=== PATIENT | male | born 1935 | race Caucasian/White ===

== ENCOUNTER 2019-11-09 16:29 | Emergency (ER) | payer MEDICARE, BC ==
[~2019-11-09] VITALS: Ht 167.6 cm; Wt 95.3 kg
[2019-11-09 17:45] LABS: URINE BILIRUBIN NEGATIVE (Negative); URINE BLOOD NEGATIVE (Negative); URINE CLARITY CLEAR; URINE COLOR YELLOW; URINE GLUCOSE-RANDOM NEGATIVE (Negative); URINE KETONES NEGATIVE (Negative); URINE LEUKOCYTES-REFLEX NEGATIVE (Negative); URINE NITRITE-REFLEX NEGATIVE (Negative); URINE PROTEIN NEGATIVE (Negative); URINE SPECIFIC GRAVITY <= 1.005 (1.005-1.030); URINE UROBILINOGEN 0.2 E.U./dl (0.2-1.0)
[2019-11-09 18:17] VITALS: BP 145/75
== END 2019-11-09 18:26 | disposition home or self-care (01) ==
LOC: M.ERS 16:29
PROVIDERS: Physician Assistant
DX: R33.9 Retention of urine, unspecified (principal); E78.00 Pure hypercholesterolemia, unspecified; I10 Essential (primary) hypertension

== ENCOUNTER 2019-11-11 13:45 | Emergency (ER) | payer MEDICARE, BC ==
[~2019-11-11] VITALS: Ht 167.6 cm; Wt 96.6 kg
[2019-11-11 14:44] LABS: ABSOLUTE EOSINOPHILS 0.3 thou/uL (0.0-0.7); ABSOLUTE LYMPHOCYTES 2.2 thou/uL (0.8-5.3); ABSOLUTE MONOCYTES 0.7 thou/uL (0.0-1.2); ABSOLUTE NEUTROPHILS 5.6 thou/uL (1.6-8.1); BASOPHILS 0.6 %; EOSINOPHILS 3.7 %; HEMATOCRIT 40.5 % (42.0-52.0); LYMPHOCYTES 25.2 %; MCH 29.5 pg (26.0-34.0); MCHC 34.6 g/dL (28.0-37.0); MCV 85.4 fL (80.0-100.0); MONOCYTES 8.1 %; MPV 7.6 fl. (7.2-11.1); NUCLEATED RBCS 0 /100WBC; PLATELET COUNT* 220 thou/uL (150-400); POLYS 62.4 %; RBC 4.74 mil/uL (4.50-6.00); RDW-CV 14.7 % (10.5-14.5); WBC 8.9 thou/uL (4.0-11.0)
[2019-11-11 15:00] LABS: APTT 26.6 Seconds (25.0-31.3); PROTIME 10.1 Seconds (9.20-11.50)
[2019-11-11 15:15] LABS: CALCIUM 8.4 mg/dL (8.5-10.1); CREATININE 1.8 mg/dL (0.6-1.3); POTASSIUM 4.4 mmol/L (3.5-5.1)
[2019-11-11 15:20] LABS: ALBUMIN 3.6 g/dL (3.4-5.0); TOTAL BILIRUBIN 0.5 mg/dL (<0.1-1.0); TOTAL PROTEIN 7.2 g/dL (6.4-8.2)
[2019-11-11 17:23] VITALS: BP 161/89
== END 2019-11-11 17:24 | disposition home or self-care (01) ==
LOC: M.ERS 13:45
PROVIDERS: Nurse Practitioner Family
DX: N40.0 Benign prostatic hyperplasia without lower urinary tract symptoms (principal); R79.89 Other specified abnormal findings of blood chemistry; I10 Essential (primary) hypertension; E78.00 Pure hypercholesterolemia, unspecified

== ENCOUNTER 2021-07-31 13:19 | Inpatient (IN) | payer MEDICARE, OTHER ==
[~2021-07-31] VITALS: Ht 167.6 cm; Wt 90.7 kg
[2021-07-31 13:30] VITALS: BP 195/162
[2021-07-31] MEDS ORDERED: PROPAFENONE 15150 MG PO (13:33)
[2021-07-31] MEDS ORDERED: NORCO5 PO (13:33)
[2021-07-31] MEDS ORDERED: ASA81BEC PO (13:34)
[2021-07-31] MEDS ORDERED: CARDIZEM60 MG PO (13:34)
[2021-07-31] MEDS ORDERED: OMEPRAZOLE 20 M20 M1 PO (13:34)
[2021-07-31] MEDS ORDERED: VITAMIN D310 MC2 PO (13:34)
[2021-07-31] MEDS ORDERED: LIPITOR10 MG PO (13:34)
[2021-07-31] MEDS ORDERED: ZANAFLEX2 M1 PO (13:35)
[2021-07-31] MEDS ORDERED: LASIX 40 MG TAB40 MG PO (13:35)
[2021-07-31] MEDS ORDERED: PROSCAR 5MG TABL5 M1 PO (13:35)
[2021-07-31] MEDS ORDERED: COZAAR 25 MG TA25 M1 PO (13:35)
[2021-07-31] MEDS ORDERED: FLOMAX0.4 MG PO (13:35)
[2021-07-31 14:19] LABS: HEMATOCRIT 42.8 % (42.0-52.0); HEMOGLOBIN 14.2 gm/dL (14.0-18.0); MCH 28.6 pg (26.0-34.0); MCHC 33.1 g/dL (28.0-37.0); MCV 86.4 fL (80.0-100.0); MPV 7.7 fl. (7.2-11.1); NUCLEATED RBCS 0 /100WBC; PLATELET COUNT* 270 thou/uL (150-400); RBC 4.95 mil/uL (4.50-6.00); RDW-CV 14.7 % (10.5-14.5); WBC 13.4 thou/uL (4.0-11.0)
[2021-07-31 14:28] LABS: CALCIUM 8.7 mg/dL (8.5-10.1); CREATININE 1.9 mg/dL (0.6-1.3)
[2021-07-31 14:43] LABS: ALBUMIN 2.7 g/dL (3.4-5.0); TOTAL BILIRUBIN 0.6 mg/dL (<0.1-1.0); TOTAL PROTEIN 6.4 g/dL (6.4-8.2)
[2021-07-31 15:12] LABS: ABSOLUTE LYMPHOCYTES 2.4 thou/uL (0.8-5.3); ABSOLUTE MONOCYTES 0.7 thou/uL (0.0-1.2); ABSOLUTE NEUTROPHILS 10.3 thou/uL (1.6-8.1)
[2021-07-31 15:13] LABS: PLATELET ESTIMATE ADEQUATE
--- NOTE | 2021-07-31 19:37 | 2DMMODE ---
[place] [address] 2 D/M-MODE ECHOCARDIOGRAM Name: JAMESON BORDEN Room: [place] [address] ADM IN [facility]#: [id number] Admission: 07/31/21 Attend Phys: Ann Fernandez, Discharge: Date of : 33 Date of Service: 07/31/21 193 Report #: [id number] THIS REPORT FOR: cc: Shayne Montejo MD, Bruce D. MD Liston, Michael J. MD [facility] ~ APPROVED REPORT Study performed: 07/31/2021 16:21:40 EXAM: Comprehensive 2D, Doppler, and color-flow Echocardiogram Patient Location: In-Patient Room #: ER Status: routine BSA: 2.00 HR: 113 bpm BP: 128/74 mmHg Rhythm: Atrial Fibrillation Other Information Study Quality: Good Indications Atrial Fibrillation 2D Dimensions IVSd: 11.33 (7-11mm) LVOT Diam: 23.68 (18-24mm) LVDd: 43.86 mm PWd: 8.64 (7-11mm) Ascending Ao: 35.25 (22-36mm) LVDs: 23.33 (25-40mm) Aortic Root: 41.49 mm Volumes Left Atrial Volume (Systole) LA ESV Index: 23.10 mL/m2 Aortic Valve AoV Peak Aamir.: 0.79 m/s AO Peak Gr.: 2.47 mmHg LVOT Max P.19 mmHg AO Mean Gr.: 1.58 mmHg LVOT Mean P.12 mmHg LVOT Max V: 0.74 m/s AO V2 VTI: 10.88 cm LVOT Mean V: 0.49 m/s MINNIE (VTI): 3.86 cm2 LVOT V1 VTI: 9.54 [place] [address] 2 D/M-MODE ECHOCARDIOGRAM Name: JAMESON BORDEN Room: [address] IN [facility]#: [id number] Admission: 07/31/21 Attend Phys: Ann Fernandez, Discharge: Date of : 33 Date of Service: 07/31/21 1936 Report #: [id number] Pulmonary Valve PV Peak Aamir.: 0.83 m/s PV Peak Gr.: 2.74 mmHg Tricuspid Valve RAP Estimate: 5.00 mmHg TR Peak Gr.: 16.07 mmHg RVSP: 21.00 mmHg PA Pressure: 21.00 mmHg Left Ventricle The left ventricle is normal size. There is normal LV segmental wall motion. Mild concentric left ventricular hypertrophy. Left ventricular systolic function is normal. LVEF is 60-65%. This study is not technically sufficient to allow evaluation of the LV diastolic function due to atrial fibrillation. Right Ventricle The right ventricle is normal size. The right ventricular systolic function is normal. Atria The left atrium size is normal. The right atrium size is normal. Aortic Valve Mild aortic valve sclerosis. No aortic regurgitation is present. There is no aortic valvular stenosis. Mitral Valve The mitral valve is normal in structure. Trace mitral regurgitation. No evidence of mitral valve stenosis. Tricuspid Valve The tricuspid valve is normal in structure. Trace tricuspid regurgitation. No pulmonary hypertension. Pulmonic Valve The pulmonary valve is normal in structure. Trace pulmonic regurgitation. Great Vessels The aortic root is normal in size. IVC is normal in size and collapses >50% with inspiration. Pericardium There is no [place] [address] 2 D/M-MODE ECHOCARDIOGRAM Name: JAMESON BORDEN Room: [address] IN [facility]#: [id number] Admission: 07/31/21 Attend Phys: Ann Fernandez, Discharge: Date of : 33 Date of Service: 07/31/21 1936 Report #: [id number] <Conclusion> The left ventricle is normal size. Mild concentric left ventricular hypertrophy. Left ventricular systolic function is normal. LVEF is 60-65%. This study is not technically sufficient to allow evaluation of the LV diastolic function due to atrial fibrillation. Trace tricuspid regurgitation. No pulmonary hypertension. IVC is normal in size and collapses >50% with inspiration. <ELECTRONICALLY SIGNED> By: Elliott Olsen MD, FACC 07/31/211935 35 35 Elliott Olsen MD, FACC /INF
[2021-07-31 20:01] VITALS: BP 118/64
[2021-07-31 23:31] VITALS: BP 126/70
[2021-08-01] VITALS (7 sets, daily range): BP systolic 102–147; BP diastolic 58–80
[2021-08-01 02:18] LABS: HEMATOCRIT 41.4 % (42.0-52.0); HEMOGLOBIN 13.7 gm/dL (14.0-18.0); MCH 28.6 pg (26.0-34.0); MCV 86.8 fL (80.0-100.0); MPV 7.5 fl. (7.2-11.1); RBC 4.77 mil/uL (4.50-6.00); RDW-CV 14.6 % (10.5-14.5); WBC 16.3 thou/uL (4.0-11.0)
[2021-08-01 02:29] LABS: ALBUMIN 2.6 g/dL (3.4-5.0); CALCIUM 8.5 mg/dL (8.5-10.1); CREATININE 1.9 mg/dL (0.6-1.3); MAGNESIUM 1.9 mg/dL (1.8-2.4); POTASSIUM 4.6 mmol/L (3.5-5.1); TOTAL BILIRUBIN 0.4 mg/dL (<0.1-1.0); TOTAL PROTEIN 6.3 g/dL (6.4-8.2)
--- NOTE | 2021-08-01 15:18 | EKG ---
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 : 1935 Requested By: Colin Hackett Order Number: [id number] MD: Elliott Olsen Measurements Intervals [place] Rate: 150 P: ID: QRS: 77 QRSD: 100 T: -15 QT: 318 QTc: 503 Interpretive Statements Atrial fibrillation with rapid V-rate Borderline T wave abnormalities No previous ECG available for comparison Electronically Signed On 08-01-2021 15:18:44 [employer] SELECTOR by Elliott Olsen [email or web address] <ELECTRONICALLY SIGNED> By: Elliott Olsen MD, [facility] 08/01/21 1518 1336 1336 Elliott Olsen MD, [facility] /EPI
[2021-08-02] VITALS (7 sets, daily range): BP systolic 99–108; BP diastolic 53–62
[2021-08-02 08:41] LABS: HEMATOCRIT 39.5 % (42.0-52.0); HEMOGLOBIN 12.9 gm/dL (14.0-18.0); MCH 28.6 pg (26.0-34.0); MCHC 32.7 g/dL (28.0-37.0); MCV 87.2 fL (80.0-100.0); MPV 8.1 fl. (7.2-11.1); RBC 4.53 mil/uL (4.50-6.00); RDW-CV 14.8 % (10.5-14.5); WBC 26.5 thou/uL (4.0-11.0)
[2021-08-02 09:15] LABS: ALBUMIN 2.7 g/dL (3.4-5.0); CALCIUM 8.2 mg/dL (8.5-10.1); CREATININE 1.8 mg/dL (0.6-1.3); MAGNESIUM 1.9 mg/dL (1.8-2.4); TOTAL BILIRUBIN 0.3 mg/dL (<0.1-1.0); TOTAL PROTEIN 6.3 g/dL (6.4-8.2)
[2021-08-02] MEDS ORDERED: ELIQUIS5 MG PO (12:20)
[2021-08-02] MEDS ORDERED: RYTHMOL SR325 MG PO (12:20)
[2021-08-02 12:57] LABS: URINE BILIRUBIN NEGATIVE (Negative); URINE BLOOD NEGATIVE (Negative); URINE CLARITY CLEAR; URINE COLOR YELLOW; URINE GLUCOSE-RANDOM NEGATIVE (Negative); URINE KETONES NEGATIVE (Negative); URINE LEUKOCYTES-REFLEX NEGATIVE (Negative); URINE NITRITE-REFLEX NEGATIVE (Negative); URINE PROTEIN NEGATIVE (Negative); URINE SPECIFIC GRAVITY >= 1.030 (1.005-1.030); URINE UROBILINOGEN 0.2 E.U./dl (0.2-1.0)
[2021-08-03] VITALS: BP 108/66
[2021-08-03 04:00] VITALS: BP 123/74
[2021-08-03 05:40] LABS: HEMOGLOBIN 11.7 gm/dL (14.0-18.0); MCH 28.9 pg (26.0-34.0); MCHC 33.4 g/dL (28.0-37.0); MCV 86.5 fL (80.0-100.0); MPV 7.8 fl. (7.2-11.1); RBC 4.05 mil/uL (4.50-6.00); RDW-CV 14.5 % (10.5-14.5); WBC 20.5 thou/uL (4.0-11.0)
[2021-08-03 05:53] LABS: POTASSIUM 3.9 mmol/L (3.5-5.1)
[2021-08-03 08:00] VITALS: BP 135/81
[2021-08-03] MEDS ORDERED: CEFDINIR300 MG PO (09:18)
[2021-08-03] MEDS ORDERED: CARDIZEM CD240 M1 PO (09:18)
[2021-08-03] MEDS ORDERED: PREDNISONE 10 M10 M1 PO (09:18)
[2021-08-03] MEDS ORDERED: KLOR-CON 1010 MEQ PO (09:18)
[2021-08-03 10:13] VITALS: BP 135/81
== END 2021-08-03 14:30 | disposition home or self-care (01) | DRG 291 ==
LOC: M.ERS 13:19 → M.TBA-ER 14:44 → M.2W 14:44
PROVIDERS: Family Medicine; Urology; ADMIT Internal Medicine; ATTEND Internal Medicine
DX: I13.0 Hypertensive heart and chronic kidney disease with heart failure and stage 1 through stage 4 chronic kidney disease, or unspecified chronic kidney disease (principal); I50.33 Acute on chronic diastolic (congestive) heart failure; N17.9 Acute kidney failure, unspecified; D68.69 Other thrombophilia; R65.10 Systemic inflammatory response syndrome (SIRS) of non-infectious origin without acute organ dysfunction; I48.0 Paroxysmal atrial fibrillation; E78.00 Pure hypercholesterolemia, unspecified; N18.30 Chronic kidney disease, stage 3 unspecified; N40.0 Benign prostatic hyperplasia without lower urinary tract symptoms; D72.829 Elevated white blood cell count, unspecified; N50.819 Testicular pain, unspecified; N41.1 Chronic prostatitis; Z79.899 Other long term (current) drug therapy; Z87.891 Personal history of nicotine dependence

== ENCOUNTER 2021-08-14 16:07 | Emergency (ER) | payer MEDICARE, OTHER ==
[~2021-08-14] VITALS: Ht 167.6 cm; Wt 92.5 kg
[~2021-08-14 16:07] MED LIST: ASA81BEC PO; CARDIZEM CD240 M1 PO; CARDIZEM60 MG PO; CEFDINIR300 MG PO; COZAAR 25 MG TA25 M1 PO; ELIQUIS5 MG PO; FLOMAX0.4 MG PO; KLOR-CON 1010 MEQ PO; LASIX 40 MG TAB40 MG PO; LIPITOR10 MG PO; NORCO5 PO; OMEPRAZOLE 20 M20 M1 PO; PREDNISONE 10 M10 M1 PO; PROPAFENONE 15150 MG PO; PROSCAR 5MG TABL5 M1 PO; RYTHMOL SR325 MG PO; VITAMIN D310 MC2 PO; ZANAFLEX2 M1 PO
[2021-08-14 16:35] LABS: HEMATOCRIT 40.5 % (42.0-52.0); HEMOGLOBIN 13.7 gm/dL (14.0-18.0); MCH 28.9 pg (26.0-34.0); MCHC 33.8 g/dL (28.0-37.0); MCV 85.6 fL (80.0-100.0); MPV 7.2 fl. (7.2-11.1); NUCLEATED RBCS 0 /100WBC; PLATELET COUNT* 263 thou/uL (150-400); RBC 4.73 mil/uL (4.50-6.00); RDW-CV 14.4 % (10.5-14.5); WBC 9.7 thou/uL (4.0-11.0)
[2021-08-14] MEDS ORDERED: LEVOFLOXACIN500 MG PO (16:57)
[2021-08-14] MEDS ORDERED: PROAIR HFA8.5 GM INH (16:57)
[2021-08-14 17:01] LABS: CALCIUM 8.3 mg/dL (8.5-10.1); POTASSIUM 3.6 mmol/L (3.5-5.1)
[2021-08-14 17:12] LABS: ALBUMIN 2.9 g/dL (3.4-5.0); MAGNESIUM 1.8 mg/dL (1.8-2.4); TOTAL BILIRUBIN 0.7 mg/dL (<0.1-1.0); TOTAL PROTEIN 6.6 g/dL (6.4-8.2)
[2021-08-14] MEDS ORDERED: PREDNISONE 20 M20 M1 PO (17:33)
[2021-08-14 17:35] LABS: ABSOLUTE LYMPHOCYTES 1.9 thou/uL (0.8-5.3); ABSOLUTE MONOCYTES 0.4 thou/uL (0.0-1.2); ABSOLUTE NEUTROPHILS 7.4 thou/uL (1.6-8.1); ATYPICAL LYMPHS 2 %
[2021-08-14 17:36] LABS: MACROCYTES Occasional; PLATELET ESTIMATE ADEQUATE
[2021-08-14 19:10] VITALS: BP 126/74
--- NOTE | 2021-08-15 09:29 | EKG ---
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: : 1935 Requested By: Colin Hackett Order Number: [id number] MD: Anuj Harris Measurements Intervals [place] Rate: 74 P: 53 IN: 200 QRS: 75 QRSD: 134 T: 48 QT: 420 QTc: 466 Interpretive Statements Sinus rhythm Nonspecific intraventricular conduction delay Baseline wander in lead(s) V1 Compared to ECG 07/31/2021 13:36:41 Intraventricular conduction delay now present Atrial fibrillation no longer present T-wave abnormality no longer present Electronically Signed On 08-15-2021 9:29:18 [employer] by Anuj Harris [email or web address] <ELECTRONICALLY SIGNED> By: Soni Harris MD, FACC 08/15/21 0929 1607 1607 Soni Harris MD, FAC /EPI
== END 2021-08-14 19:11 | disposition home or self-care (01) ==
LOC: M.ERS 16:07
PROVIDERS: Family Medicine
DX: R07.89 Other chest pain (principal); E78.00 Pure hypercholesterolemia, unspecified; I10 Essential (primary) hypertension; Z79.899 Other long term (current) drug therapy; Z87.891 Personal history of nicotine dependence